=== PATIENT | male | born 1995 | race Caucasian/White ===

== ENCOUNTER 2024-06-10 11:16 | Outpatient (AMB) | payer OTHER, SELFPAY ==
--- NOTE | 2024-06-10 11:27 | A.OFFPC_ITS ---
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 Concert Manager Required: No Allergies No Known Allergies Allergy (Verified 06/10/24 11:44) Medication List - Last Reconciled 06/10/24 by Nicole Wylie CNP tranylcypromine (Parnate) 30 mg PO DAILY Tobacco use date assessed: 06/10/24 Dental Screening Dental Screen Date: 06/10/24 Did you have a dental visit in the last 12 months?: Yes Did you have a dental problem in the last 6 months where you did not have access to dental care?: No Was dental information given to patient?: Patient has dentist HPI HPI Comments History of Present Illness Details New patient Lives in the [place] [facility] half-way. He was incarcerated for almost 4 years before he moved into the half-way Prior PCP:?Does not recall Last office visit/CPE: About 5-6 years Acute issue(s): Depression He is on tranylcypromine 30mg daily He is followed by a psychiatrist an therapist at [facility]. He sees his psychiatrist once a month and therapist every two weeks He sleeps well He notes that he has been making healthy lifestyle choices, including diet and exercise He offers no complaints and denies acute symptoms at this time PMHx: Elevated TSH level 6 months ago (no treatment), scoliosis SurgHx: None FHx: Dad: Alcohol abuse SocHx: Nonsmoker. Does not drink alcohol. Vapes daily, has been vaping for about 3 months. No recreational drugs Last eye exam was 5-6 years ago Last tetanus injection was about 6 years ago He has not been vaccinated for the flu and declines vaccination He notes that he has never been sexually active and has no concerns for STI He requests testosterone level check because he feels as though it is low at times [facility] Medical History (Updated 06/10/24 @ 12:16 by Nicole Wylie CNP) Overactive thyroid gland Family History (Updated 06/10/24 @ 11:35 by Juana Thompson MA) Father Alcohol abuse Social History Housing: Other (half-way) Patient Tobacco Use Status: Never used Tobacco e-Cigarette/Vaping Use: Currently Using Second Hand Smoke Exposure: No service: No Current occupational status: employed 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 1. Little interest or pleasure in doing things: not at all 2. Feeling down, depressed, or hopeless: not at all 3. Trouble falling or staying asleep, or sleeping too much: not at all 4. Feeling tired or having little energy: several days 5. Poor appetite or overeating: not at all 6. Feeling bad about yourself - or that you are a failure or have let yourself or your family down: not at all 7. Trouble concentrating on things, such as reading the newspaper or watching television: several days 8. Moving or speaking so slowly that other people could have noticed. Or the opposite - being so fidgety or restless that you have been moving around a lot more than usual: not at all 9. Thoughts that you would be better off or of hurting yourself in some way: not at all Total score: 2 Depression Screening Interpretation: Negative Depression Screening Done: Yes 22204 - PHQ-9 Billing: Yes Source: Developed by Drs. Jessee Saha, Carolyn Meraz, Pb Diallo and colleagues, with an educational taz from [employer]. Thrive Questionnaire Date Thrive assessed: 06/10/24 I am a: Patient What is your living situation today?: I do not have a steady places to live Within the past 12 months, did the food you bought not last and you didn't have the money to get more?: Never true Within the past 12 months, did you worry whether your food would run out before you got money to buy more?: Never true Do you have trouble paying for medicines?: No Do you have trouble getting transportation to medical appointments?: No Do you have trouble paying your heating and electricity bill?: No Do you have trouble taking care of your child, family member or friend?: No Do you have trouble with day-to-day activities such as bathing, preparing meals, shopping, managing finances, etc.?: No Are you currently unemployed and looking for a job?: Yes Are you interested in more education?: Yes Please select the resources that you would like help with: Job search/training and Education Currently or been in a relationship where the following occur: No concerns reported THRIVE Score: 1 AUDIT C Alcohol Use Questionnaire (AUDIT-C) 1. How often do you have a drink containing alcohol?: Never Total Score: 0 Score Reviewed/Action Taken: Yes JACQUIE-7 AMB Questionnaire JACQUIE-7 Date JACQUIE - 7 assessed: 06/10/24 Feeling nervous, anxious, or on edge: 0 = Not at all Not being able to stop or control worryin = Not at all Worrying too much about different things: 0 = Not at all Trouble relaxin = Not at all Being so restless that it is hard to sit still: 0 = Not at all Becoming easily annoyed or irritable: 0 = Not at all Feeling afraid as if something awful might happen: 0 = Not at all Total JACQUIE-7 score (0-4 normal; 5-9 mild; 10-14 moderate; 15-21 severe): 0 Source: Developed by Drs. Jessee Saha, Carolyn Meraz, Pb Diallo and colleagues, with an educational taz from [employer]. JACQUIE-7 Assessment Billing JACQUIE-7 Assessment Tool: JACQUIE-7 Assessment 85972 Review of Systems Const Details: Denies chills, Denies fatigue, Denies fever(s), Denies headache(s) and Denies weakness HEENT Denies change in vision, Denies dizziness, Denies headache(s), Denies hearing loss, Denies nasal congestion, Denies sinus pain, Denies sinus pressure and Denies sore throat Card Denies chest pain, Denies lightheadedness, Denies dyspnea and Denies other (palpitations) Resp Denies cough, Denies dyspnea and Denies wheezing GI Denies abdominal pain, Denies melena, Denies hematochezia, Denies change in bowel habits, Denies dyspepsia and Denies nausea Denies hematuria and Denies dysuria Musc Denies abnormal gait, Denies myalgias, Denies arthralgias, Denies numbness and Denies tingling Skin/Breast Denies rash, Denies unusual bruising and Denies wounds Neuro Denies abnormal gait, Denies dizziness, Denies headache(s), Denies memory loss, Denies numbness, Denies Sensory deficit (Neuro), Denies tingling and Denies weakness Psych Denies anxiety, Denies depression and Denies memory loss Endo Denies cold intolerance, Denies fatigue, Denies heat intolerance, Denies polydipsia and Denies polyuria Edwin/Lymph Denies easy bleeding and Denies easy bruising Aller/Immun Denies wheezing Physical exam (Primary Care) Vital Signs: Last Vital Signs Temp 97.4 F 06/10/24 11:35 Pulse 67 06/10/24 11:35 Resp 16 06/10/24 11:35 BP 110/80 06/10/24 11:35 Pulse Ox 96 06/10/24 11:35 Oxygen Delivery Method Room Air 06/10/24 11:35 BMI result Body Mass Index 28.5 Tobacco/Smoking Status: Tobacco use Status Tobacco use date assessed 06/10/24 06/10/24 11:35 Patient Tobacco Use Status Never used Tobacco 06/10/24 11:35 e-Cigarette/Vaping Use Currently Using 06/10/24 11:35 Depression Screening Interpretation: Negative Currently or been in a relationship where the following occur: No concerns reported Const Other: General: no acute distress, well developed, alert and awake Nutritional Appearance: well nourished Orientation/consciousness: patient oriented x3 HENMT Head: Yes normocephalic and Yes atraumatic Ears: hearing grossly normal bilaterally and TM's normal bilaterally General nose exam: Normal external nose present and Normal nares present Mouth: Normal oral and palatal mucosa present and moist mucous membranes Teeth and gingiva: dentition normal Throat: Yes oropharynx normal Eyes Pupils: Equal, round and reactive pupils present and Pupil accommodation reflex normal EOM: EOMs intact bilaterally Neck Neck: Yes normal visual inspection, Yes no lymphadenopathy and Yes trachea midline Thyroid: Thyroid normal Carotids: no bruits Lymphatic: no lymphadenopathy noted Chest Chest palpation & inspection: normal inspection of the chest Resp Effort & Inspection: normal respiratory effort Auscultation: clear to auscultation bilaterally Cardio Rate: regular rate Rhythm: regular rhythm Heart sounds: S1 normal heart sound present, S2 normal heart sound present, no gallops, no murmurs and no rubs Bruits: no abdominal aortic bruits and no carotid bruits GI Palpation (GI): No Abdominal aortic bruit present, Soft to palpation, nontender, No hepatosplenomegaly present and No Rebound tenderness present Auscultation: normal bowel sounds General: Yes no CVA tenderness Back/Spine/Pelvis Back: no CVA tenderness Cervical Spine: cervical ROM normal and No Cervical spine tenderness Thoracic/Lumbar Spine: thoraco-lumbar ROM normal, No pain with thoraco-lumbar ROM, No thoracic spinal tenderness and No lumbar spinal tenderness Skin General: warm and dry. Normal skin color. Normal skin turgor Lesions: no lesions Rashes: no rashes Trauma: no lacerations or abrasions Wounds: no wounds Nails: normal Neuro General: patient oriented x3, gait normal and CN's II-XI intact bilaterally Cranial nerves: Yes Equal, round and reactive pupils present Cognition (Neuro): normal cognition Gait exam (Neuro): Normal gait present Motor exam (neuro): 5/5 motor strength present throughout Sensory Exam: No Sensory deficit (Neuro) Deep tendon reflexes (DTR's): Right patellar reflex intensity grade: 2+ and Left patellar reflex intensity grade: 2+ Extrem General: Yes normal to inspection, No edema and No calf tenderness Psych Appearance: grossly normal Affect: normal affect Attitude: cooperative Thought process: Normal thought process present Coding Level of Care Code New Pt Prev Care 18-39yr([id number] Diagnoses Normal physical examination, routine Z00.00 Major depression F32.9 Eye exam, routine Z01.00 Engages in vaping Z72.89 Laboratory tests ordered as part of a complete physical exam (CPE) Z00.00 Additional Codes JACQUIE-7 Assessment Billing - JACQUIE-7 Assessment Tool: JACQUIE-7 Assessment 92090 ([id number]) Assessment & Plan Assessment & Plan (1) Normal physical examination, routine: Code(s): Z00.00 - Encounter for general adult medical examination without abnormal find ings Category: Medical Plan: No significant physical restrictions or limitations noted Continue current treatment regimen Healthy diet and routine exercise encouraged Advised to get lab work done and follow-up for telehealth visit in 2-3 weeks for labs review Return sooner with symptoms or concerns Verbalized understanding and agreed with the treatment plan (2) Major depression: Code(s): F32.9 - Major depressive disorder, single episode, unspecified Category: Medical Plan: Reports controlled depressive symptoms PHQ-9 and JACQUIE-7 scores are normal Continue current treatment regimen Follow-up with psychiatrist and therapist as planned Verbalized understanding and agreed with the treatment plan (3) Eye exam, routine: Code(s): Z01.00 - Encounter for examination of eyes and vision without abnormal findings Category: Medical Plan: Last eye exam was 5-6 years ago Referred to Ophthalmology for routine eye exam (4) Engages in vaping: Code(s): Z72.89 - Other problems related to lifestyle Category: Medical Plan: He has not been vaccinated for the flu and declines vaccination Instructed on the health risks and complications of vaping nicotine and encouraged to stop Declines medication treatment for nicotine use She may notify her PCP as needed for treatment of nicotine use Verbalized understanding and agreed with the plan (5) Laboratory tests ordered as part of a complete physical exam (CPE): Code(s): Z00.00 - Encounter for general adult medical examination without abnormal findings Category: Medical Plan: Fasting labs ordered as part of a complete physical exam. Advised to fast for at least 10 hours before getting labs drawn. May drink water Verbalized understanding and agreed with treatment plan. Orders: Orders Complete Blood Count Auto Diff Today Z00.00 - Encounter for general adult medical examination without abnormal findings Comprehensive [place]. Panel Fast Today Z00.00 - Encounter for general adult medical examination without abnormal findings TSH reflex Free T4 Today Z00.00 - Encounter for general adult medical examination without abnormal findings Lipid Panel Today Z00.00 - Encounter for general adult medical examination without abnormal findings UA CC w/rflx Micro + Cult Today Z00.00 - Encounter for general adult medical examination without abnormal findings Testosterone, Free/Total Today Z00.00 - Encounter for general adult medical examination without abnormal findings Referrals Ophthalmology Referral Z01.00 - Encounter for examination of eyes and vision without abnormal findings
[2024-06-10 11:35] VITALS: BP 110/80; PULSE 67; RESP 16; TEMP 36.3; O2SAT 96; BMI 28.5
== END 2024-06-10 12:14 | disposition home or self-care (01) ==
PROVIDERS: Visit Provider Nurse Practitioner Family
DX: Z00.00 Encounter for general adult medical examination without abnormal findings (principal); F32.9 Major depressive disorder, single episode, unspecified; Z72.89 Other problems related to lifestyle

== ENCOUNTER → 2024-06-10 11:16 | Outpatient (BNVA) | payer OTHER, SELFPAY | PROVIDERS: Visit Provider Nurse Practitioner Family | DX: Z00.00 Encounter for general adult medical examination without abnormal findings (principal); F32.9 Major depressive disorder, single episode, unspecified; Z72.89 Other problems related to lifestyle | CPT/HCPCS: 96127; 99385 ==

== ENCOUNTER 2024-06-12 09:31 | Outpatient (REF) | payer OTHER, SELFPAY ==
[2024-06-12 11:18] LABS: MANUAL DIFF FLAG NO
[2024-06-12 11:25] LABS: Basophils Percent Auto 0.6 % (0-2); Eosinophils Absolute Auto 0.2 X10*3/uL (0.0-0.4); Eosinophils Percent Auto 3.9 % (0-4); Hematocrit 47.7 % (42.0-52.0); Hemoglobin 16.4 g/dl (14.0-18.0); Imm Gran Abs Auto 0.03 X10*3/uL (0.00-0.03); Imm Gran Pct Auto 0.5 % (0.0-0.4); Lymphocytes Absolute Auto 2.2 X10*3/uL (1.2-4.9); Lymphocytes Percent Auto 35.8 % (20-40); Mean Corpuscular HGB Conc 34.4 g/dl (31.0-36.0); Mean Corpuscular Hemoglobin 31.2 pg (27.0-33.0); Mean Corpuscular Volume 90.7 fL (80.0-98.0); Mean Platelet Volume 10.2 fL (9.4-12.4); Monocytes Absolute Auto 0.5 X10*3/uL (0.1-1.2); Monocytes Percent Auto 7.7 % (2-11); Neutrophils Absolute Auto 3.2 x10*3/uL (2.0-8.3); Neutrophils Percent Auto 51.5 % (45-73); Platelet Count 209 X10*3/uL (160-400); Red Blood Count 5.26 X10*6/uL (4.60-5.80); Red Cell Distribution Width 12.4 % (11.0-16.0); White Blood Count 6.2 X10*3/uL (4.8-10.8)
[2024-06-12 11:47] LABS: Alanine Aminotransferase 29 U/L (0-40); Albumin Level 4.3 g/dL (3.5-5.0); Alkaline Phosphatase 60 U/L (39-117); Anion Gap 11 (12-20); Aspartate Amino Transferase 23 U/L (5-37); Bilirubin Total 0.6 mg/dL (0.0-1.0); Blood Urea Nitrogen 19 mg/dL (9-16); Calcium 9.7 mg/dL (8.4-10.2); Carbon Dioxide 29 mmol/L (22-29); Chloride 106 mmol/L (96-108); Cholesterol 171 mg/dL (<200); Estimated Glomerular Filt Rate > 60; Glucose Fasting 85 mg/dL (60-99); HDL Cholesterol 45 mg/dL (>40); LDL Cholesterol Calculated 107 mg/dL (<100); Potassium 4.6 mmol/L (3.3-5.1); Sodium 141 mmol/L (135-145); Total Protein 7.1 g/dL (6.5-8.0); Triglycerides 97 mg/dL (<150)
[2024-06-12 12:05] LABS: TSH reflex Free T4 3.01 uIU/mL (0.32-4.0)
[2024-06-12 14:42] LABS: Appearance Urine Clear; Color Urine Yellow; Glucose Urine UA Negative (Negative); Leukocyte Esterase Urine Negative (Negative); Nitrite Urine Negative (Negative); Specific Gravity - Urine 1.025 (1.005-1.025); Urine Blood Negative (Negative); Urine Ketones Negative (Negative); Urine Protein Negative (Neg-Trace)
[2024-06-17 09:49] LABS: Testosterone, Free 86.6 pg/mL (35.0-155.0); Testosterone, Total 442 ng/dL (250-1100)
== END 2024-06-12 09:32 | disposition home or self-care (01) ==
LOC: HO.WFDLDS 09:31
PROVIDERS: Visit Provider Nurse Practitioner Family
DX: Z00.00 Encounter for general adult medical examination without abnormal findings (principal)
CPT/HCPCS: 36415; 80053; 80061; 81003; 84402; 84403; 84443; 85025